=== PATIENT | female | born 1995 | race Two or more races ===

== ENCOUNTER 2021-07-20 17:53 | Emergency (ER) | payer MEDICAID ==
[~2021-07-20] VITALS: Ht 162.6 cm; Wt 136.1 kg
--- NOTE | 2021-07-20 18:15 | NUR ---
RECEIVED PT 25 YRF FEMALE C/O DIFFELTY OF URINATION FOR 3 DAYS ABDOMIN SOFT NONE TENDER
--- NOTE | 2021-07-20 18:34 | NUR ---
seen by DR. SOLIS
--- NOTE | 2021-07-20 18:43 | NUR ---
rickie send during by cb nurse rn
--- NOTE | 2021-07-20 19:20 | NUR ---
HAND OFF TO PEDRO DURAND
[2021-07-20 19:51] LABS: COLOR,URINE YELLOW (YELLOW)
[2021-07-20 19:52] LABS: UGLUCOSE NEGATIVE (NEGATIVE)
[2021-07-20 19:53] LABS: BILIRUBIN,URINE NEGATIVE (NEGATIVE); LEUKOCYTE ESTERASE ,URINE MODERATE (NEGATIVE); NITRITE, URINE NEGATIVE (NEGATIVE); UROBILINOGEN,URINE 0.2 EU/dL (0.2)
[2021-07-20 20:04] LABS: PROTEIN,URINE 2+ mg/dl (NEGATIVE)
[2021-07-20 20:05] LABS: BACTERIA,URINE 2+ /HPF (None Seen); WBC,URINE 21-50 /HPF (0-3)
[2021-07-20] MEDS ORDERED: NITR100C6 PO ×2 (21:00→21:23)
[2021-07-20] MEDS ORDERED: FLUCONAZOLE (100 MG) 100 MG TABLET ONE ×2 (21:00→21:01)
[2021-07-20] MEDS ORDERED: FLUCONAZOLE (100 MG) 100 MG TABLET PO ONE (21:00)
--- NOTE | 2021-07-20 21:08 | NUR ---
Patient discharged to home in stable condition. Written and verbal after care instructions given. Patient verbalizes understanding of instruction.
[2021-07-20 21:15] VITALS: BP 131/80
== END 2021-07-20 21:25 | disposition home or self-care (01) ==
LOC: ER 18:10
DX: N39.0 Urinary tract infection, site not specified (principal); F32.A Depression, unspecified; F41.9 Anxiety disorder, unspecified; Z88.0 Allergy status to penicillin
CPT/HCPCS: 76856-TC; 81001; 84703-TC; 87086-TC

== ENCOUNTER 2021-10-25 07:49 | Emergency (ER) | payer MEDICAID ==
[~2021-10-25] VITALS: Ht 162.6 cm; Wt 136.1 kg
[~2021-10-25 07:49] MED LIST: NITR100C6 PO
[2021-10-25 07:56] VITALS: BP 125/83
[2021-10-25] MEDS ORDERED: IBUP-1957 PO (08:14)
[2021-10-25] MEDS ORDERED: AZIT250T PO (08:14)
--- NOTE | 2021-10-25 08:30 | NUR ---
Patient discharged to home in stable condition. Written and verbal after care instructions given. Patient verbalizes understanding of instruction.
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
== END 2021-10-25 08:32 | disposition home or self-care (01) ==
LOC: ER 08:00
DX: J40 Bronchitis, not specified as acute or chronic (principal); F32.A Depression, unspecified; F41.9 Anxiety disorder, unspecified; Z88.0 Allergy status to penicillin; Z60.2 Problems related to living alone; Z79.899 Other long term (current) drug therapy
CPT/HCPCS: 86403-TC; 87070-TC

== ENCOUNTER 2023-08-14 12:31 | Emergency (ER) | payer MEDICAID ==
[~2023-08-14] VITALS: Ht 162.6 cm; Wt 117.9 kg
[~2023-08-14 12:31] MED LIST changes: +AZIT250T PO; +IBUP-1957 PO
[2023-08-14 12:42] VITALS: BP 131/94; TEMP 98.2
[2023-08-14] MEDS ORDERED: CLIN300C12 PO (12:55)
[2023-08-14 13:06] VITALS: O2SAT 95
== END 2023-08-14 13:07 | disposition home or self-care (01) ==
LOC: ER 12:37
DX: L03.011 Cellulitis of right finger (principal); F32.A Depression, unspecified; Z79.52 Long term (current) use of systemic steroids; Z60.2 Problems related to living alone; Z88.0 Allergy status to penicillin